=== PATIENT | male | born 1990 | race Caucasian/White ===

== ENCOUNTER 2019-02-24 16:26 | Inpatient (IN) ==
[2019-02-24] MEDS ORDERED: Isovue-370 500 ML BOTTLE IVP ONE (17:44)
[2019-02-24] MEDS ORDERED: *HR* LORazepam 2 MG/ML VIAL IM STA (17:52)
[2019-02-24] MEDS ORDERED: Ziprasidone 20 MG in Water for inj. (sterile) 1 ML IM ONE (19:09)
[2019-02-24 19:14] LABS: Basophils % 0.3 %; Eosinophils # 0.1 K/mcL (0.0-0.6); Eosinophils % 0.5 %; Hematocrit 47.6 % (37.5-50.1); Hemoglobin 17.1 g/dL (12.9-16.9); Immature Granulocytes % 0.4 % (0-4); Lymphocytes # 1.1 K/mcL (0.6-4.6); Lymphocytes % 9.6 %; Mean Corpuscular HGB Conc 35.9 g/dL (31.6-35.5); Mean Corpuscular Hemoglobin 30.6 pg (28.0-33.3); Mean Corpuscular Volume 85.3 fL (83.0-100.0); Mean Platelet Volume 9.4 fL (9.4-12.4); Monocytes % 8.6 %; Neutrophils # 9.2 K/mcL (1.6-8.9); Platelet Count 327 K/mcL (140-400); Red Blood Count 5.58 M/mcL (4.19-5.50); Red Cell Distribution Width 11.9 % (11.5-14.5); Segmented Neutrophils % 80.6 %; White Blood Count 11.4 K/mcL (4.3-11.1)
[2019-02-24 19:34] LABS: Acetaminophen < 10 mcg/mL (10-20); Alanine Aminotransferase 35 Units/L (7-52); Albumin 5.1 g/dL (3.5-5.7); Albumin/Globulin Ratio 1.5 (1.1-2.2); Alkaline Phosphatase 72 Units/L (34-104); Amylase 29 Units/L (29-103); Aspartate Amino Transferase 15 Units/L (13-39); BUN/Creatinine Ratio 16 (6-26); Bilirubin,Direct 0.2 mg/dL (0.0-0.2); Bilirubin,Indirect 0.7 mg/dL (0.0-1.2); Bilirubin,Total 0.9 mg/dL (0.3-1.0); Blood Urea Nitrogen 16 mg/dL (6-20); Calcium 10.3 mg/dL (8.6-10.3); Carbon Dioxide 22 mEq/L (23-29); Chloride 101 mEq/L (98-107); Ethanol < 10 mg/dL (Less than 10); Globulin 3.4 g/dL (2.4-3.5); Glucose 107 mg/dL (70-105); Lipase 9 Units/L (11-82); Osmolality,Calculated 290 (280-300); Potassium 3.5 mEq/L (3.5-5.1); Salicylate < 2.5 mg/dL (15.0-30.0); Sodium 139 mEq/L (136-145); Total Protein 8.5 g/dL (6.4-8.9); eGFR For African Americans > 60 (> 60); eGFR For Non-African Americans > 60 (> 60)
[2019-02-24 19:50] LABS: Bilirubin,Urine Negative (Negative); Blood,Urine Negative (Negative); Clarity,Urine Clear (Clear); Color,Urine Yellow (Yellow); Glucose,Urine (UA) Normal (Normal); Ketones,Urine 40 mg/dL (Negative); Leukocyte Esterase,Urine Negative (Negative); Nitrite,Urine Negative (Negative); Protein,Urine Trace mg/dL (Neg-Trace); Specific Gravity,Urine > 1.030 (1.010-1.025); Urobilinogen,Urine Normal (Normal)
[2019-02-24 19:59] LABS: Amphetamine Screen,Urine Negative ng/mL (Cutoff=1000); Barbiturate Screen,Urine Negative ng/mL (Cutoff=200); Benzodiazepines Screen,Urine Negative ng/mL (Cutoff=200); Cannabinoid Screen,Urine Negative ng/mL (Cutoff = 50); Cocaine Screen,Urine Negative ng/mL (Cutoff= 300); Opiate Screen,Urine Negative ng/mL (Cutoff=300); Phencyclidine Screen,Urine Negative ng/mL (Cutoff=25)
--- NOTE | 2019-02-24 20:47 | Emergency Department Note ---
Disposition Clinical Impression: Abdominal pain, Suicidal ideation Disposition: Still a Patient Referrals: NONE,PCP [Primary Care Provider] - Forms: ED Satisfaction Letter, Work/School Release Time of Disposition: 22:11 Abdominal Pain HPI - General Chief Complaint: ED Abdominal Pain Stated Complaint: abd pain/psych-anxious/agitated/not taking meds Time Seen by Provider: 02/24/19 17:17 Source: patient, family - History of Present Illness HPI Narrative: Patient is 28-year-old gentleman who presents to the emergency department with chief complaint of abdominal pain. He reports that he has been having abdominal pain for months and that no one will evaluate him correctly. The patient states that he has been seen in the ER but we will diskette up and leave per the patient's family the patient has history of psychiatric disorders and has not been taking his medications and is also been saying that he has been wanting to harm himself. The patient's father stated that last night he was talking about taking the car and driving the car and crashing the car to kill himself and has recently been holding a gun and saying that he was going to shoot himself. The patient currently denies any suicidal or homicidal ideation but is pacing around and is responding to internal stimuli. Pain Scale: 4 - Related Data Previous Rx's Medication Instructions Recorded Lansoprazole [Prevacid] 30 mg PO BIDAC #60 capsule. 02/22/19 Allergies Allergy/AdvReac Type Severity Reaction Status Date / Time ibuprofen Allergy Rash Verified 02/24/19 17:15 All systems ED: reviewed and negative except as stated. Abdominal Pain PMH - Past Medical History Medical history: Reports: no medical history Male Surgical History: Reports: other Psychiatric history: Reports: anxiety, schizophrenia - Social History Smoking status: Never smoker Alcohol use: Reports: none Drug use: Reports: none Physical Exam General: Conversant and pleasant interactive and nontoxic. Head: Normocephalic/atraumatic Eyes:PERRLA, EOMI, no conjunctivitis Nares: Without d/c. Ears: No erythema or d/c noted. Oralpharnyx: P&MMM noted, Neck: Supple, no JVD or HELPDESK TECHNICIAN noted. Cardovascular: regular rate and rhythm without murmur, brisk capillary refill, no peripheral edema. Lungs: Clear to ascultation bilaterally, non-labored Abd: Soft mild tenderness to palpation, Non Distended, no guarding, no rebound. : Defered Extremities: moves all extremities equally Neuro: AOx3, H is fidgeting around the room currently states that he is not suicidal or homicidal Psych: Normal Affect Derm: No rash noted - General Limitations: other General appearance: alert, anxious Course Course Narrative: The patient presented complaining of abdominal pain but then was attempting to walk out the patient was found to be expressing suicidal ideation at home the patient was very noncooperative at this point the determination was made that the patient does express significant risk to himself or potential risk to himself the patient will undergo medical clearance and evaluation by Ia. Patient been medically cleared from his medical standpoint and currently undergoing Ia evaluation. I will be signing out to Dr. Toro pending Ia evaluation and results Vital Signs Temperature 97.5 F L 02/24/19 18:19 Pulse Rate 98 02/24/19 18:19 Respiratory Rate 20 02/24/19 18:19 Blood Pressure 118/83 02/24/19 18:19 O2 Sat by Pulse Oximetry 97 02/24/19 18:19 Temperature 97.5 F L 02/24/19 18:22 Pulse Rate 98 02/24/19 18:22 Respiratory Rate 20 02/24/19 18:22 Blood Pressure 118/83 02/24/19 18:22 O2 Sat by Pulse Oximetry 97 02/24/19 18:22 Oxygen Delivery Oxygen Delivery Room Air Abdominal Pain - Lab Data Result diagrams: 02/24/19 17:43 02/24/19 17:44 Lab Results 02/24/19 02/24/19 02/24/19 Range/Units 17:43 17:44 19:41 WBC 11.4 H D (4.3-11.1) K/mcL RBC 5.58 H (4.19-5.50) M/mcL Hgb 17.1 H D (12.9-16.9) g/dL Hct 47.6 (37.5-50.1) % MCV 85.3 (83.0-100.0) fL MCH 30.6 (28.0-33.3) pg MCHC 35.9 H (31.6-35.5) g/dL RDW 11.9 (11.5-14.5) % Plt Count 327 (140-400) K/mcL MPV 9.4 (9.4-12.4) fL Immature Gran % 0.4 (0-4) % Seg Neutrophils % 80.6 % Lymphocytes % 9.6 % Monocytes % 8.6 % Eosinophils % 0.5 % Basophils % 0.3 % Neutrophils # 9.2 H (1.6-8.9) K/mcL Lymphocytes # 1.1 (0.6-4.6) K/mcL Monocytes # 1.0 (0.0-1.3) K/mcL Eosinophils # 0.1 (0.0-0.6) K/mcL Basophils # 0.0 (0.0-0.2) K/mcL Sodium 139 (136-145) mEq/L Potassium 3.5 (3.5-5.1) mEq/L Chloride 101 (98-107) mEq/L Carbon Dioxide 22 L (23-29) mEq/L BUN 16 (6-20) mg/dL Creatinine 0.99 (0.70-1.30) mg/dL Est GFR ( Amer) > 60 (> 60) Est GFR (Non-Af Amer) > 60 (> 60) BUN/Creatinine Ratio 16 (6-26) Glucose 107 H (70-105) mg/dL Calculated Osmolality 290 (280-300) Calcium 10.3 (8.6-10.3) mg/dL Total Bilirubin 0.9 (0.3-1.0) mg/dL Direct Bilirubin 0.2 (0.0-0.2) mg/dL Indirect Bilirubin 0.7 (0.0-1.2) mg/dL AST 15 (13-39) Units/L ALT 35 (7-52) Units/L Alkaline Phosphatase 72 (34-104) Units/L Serum Total Protein 8.5 (6.4-8.9) g/dL Albumin 5.1 (3.5-5.7) g/dL Globulin 3.4 (2.4-3.5) g/dL Albumin/Globulin Ratio 1.5 (1.1-2.2) Amylase 29 (29-103) Units/L Lipase 9 L (11-82) Units/L Urine Color Yellow (Yellow) Urine Clarity Clear (Clear) Urine pH 6.0 (5.0-8.0) pH Units Ur Specific [place] > 1.030 H (1.010-1.025) Urine Protein Trace (Neg-Trace) mg/dL Urine Glucose (UA) Normal (Normal) mg/dL Urine Ketones 40 H (Negative) mg/dL Urine Blood Negative (Negative) Urine Nitrite Negative (Negative) Urine Bilirubin Negative (Negative) Urine Urobilinogen Normal (Normal) mg/dL Ur Leukocyte Esterase Negative (Negative) Ur Culture Indicated? NO (NO) Salicylates < 2.5 L (15.0-30.0) mg/dL Urine Opiates Screen (Nzkzbc=570) ng/mL Ur Buprenorphine Scrn (Cutoff=5) ng/mL Acetaminophen < 10 L (10-20) mcg/mL Ur Barbiturates Screen (Ldpdyl=664) ng/mL Ur Phencyclidine Scrn (Cutoff=25) ng/mL Ur Amphetamines Screen (Ofotjl=7390) ng/mL U Benzodiazepines Scrn (Nitetg=103) ng/mL Urine Cocaine Screen (Cutoff= 300) ng/mL U Marijuana (THC) Screen (Cutoff = 50) ng/mL Ur Drug Screen Interp Ethyl Alcohol < 10 (Less than 10) mg/dL 02/24/19 Range/Units 19:41 WBC (4.3-11.1) K/mcL RBC (4.19-5.50) M/mcL Hgb (12.9-16.9) g/dL Hct (37.5-50.1) % MCV (83.0-100.0) fL MCH (28.0-33.3) pg MCHC (31.6-35.5) g/dL RDW (11.5-14.5) % Plt Count (140-400) K/mcL MPV (9.4-12.4) fL Immature Gran % (0-4) % Seg Neutrophils % % Lymphocytes % % Monocytes % % Eosinophils % % Basophils % % Neutrophils # (1.6-8.9) K/mcL Lymphocytes # (0.6-4.6) K/mcL Monocytes # (0.0-1.3) K/mcL Eosinophils # (0.0-0.6) K/mcL Basophils # (0.0-0.2) K/mcL Sodium (136-145) mEq/L Potassium (3.5-5.1) mEq/L Chloride (98-107) mEq/L Carbon Dioxide (23-29) mEq/L BUN (6-20) mg/dL Creatinine (0.70-1.30) mg/dL Est GFR ( Amer) (> 60) Est GFR (Non-Af Amer) (> 60) BUN/Creatinine Ratio (6-26) Glucose (70-105) mg/dL Calculated Osmolality (280-300) Calcium (8.6-10.3) mg/dL Total Bilirubin (0.3-1.0) mg/dL Direct Bilirubin (0.0-0.2) mg/dL Indirect Bilirubin (0.0-1.2) mg/dL AST (13-39) Units/L ALT (7-52) Units/L Alkaline Phosphatase (34-104) Units/L Serum Total Protein (6.4-8.9) g/dL Albumin (3.5-5.7) g/dL Globulin (2.4-3.5) g/dL Albumin/Globulin Ratio (1.1-2.2) Amylase (29-103) Units/L Lipase (11-82) Units/L Urine Color (Yellow) Urine Clarity (Clear) Urine pH (5.0-8.0) pH Units Ur Specific [place] (1.010-1.025) Urine Protein (Neg-Trace) mg/dL Urine Glucose (UA) (Normal) mg/dL Urine Ketones (Negative) mg/dL Urine Blood (Negative) Urine Nitrite (Negative) Urine Bilirubin (Negative) Urine Urobilinogen (Normal) mg/dL Ur Leukocyte Esterase (Negative) Ur Culture Indicated? (NO) Salicylates (15.0-30.0) mg/dL Urine Opiates Screen Negative (Owmlbm=571) ng/mL Ur Buprenorphine Scrn Negative (Cutoff=5) ng/mL Acetaminophen (10-20) mcg/mL Ur Barbiturates Screen Negative (Vazwnb=294) ng/mL Ur Phencyclidine Scrn Negative (Cutoff=25) ng/mL Ur Amphetamines Screen Negative (Zuubgy=2726) ng/mL U Benzodiazepines Scrn Negative (Spcqpb=749) ng/mL Urine Cocaine Screen Negative (Cutoff= 300) ng/mL U Marijuana (THC) Screen Negative (Cutoff = 50) ng/mL Ur Drug Screen Interp See Below Ethyl Alcohol (Less than 10) mg/dL
[2019-02-24] MEDS ORDERED: Haloperidol Lactate 5 MG/ML VIAL IM PRN (23:06)
[2019-02-24] MEDS ORDERED: MOM Conc 10 ML UD.LIQ PO PRN (23:06)
[2019-02-24] MEDS ORDERED: Mag Hydrox/Al Hydrox/Simeth 30 ML UDC PO PRN (23:06)
[2019-02-24] MEDS ORDERED: hydrOXYzine pamoate 25 MG CAPSULE PO PRN (23:06)
[2019-02-24] MEDS ORDERED: traZODone 50 MG TABLET PO PRN (23:06)
[2019-02-24] MEDS ORDERED: *HR* LORazepam 1 MG TABLET PO PRN (23:06)
[2019-02-24] MEDS ORDERED: Acetaminophen 325 MG TABLET PO PRN (23:06)
[2019-02-24] MEDS ORDERED: *HR* LORazepam 2 MG/ML VIAL IM PRN (23:06)
--- NOTE | 2019-02-25 08:13 | Psychiatry History & Physical ---
Date of Encounter: 02/25/19 Time of Encounter: 09:45 History of Present Illness Patient Stated Chief Complaint: No one believes I'm dying Medicare Admission Attestation: For traditional Medicare patients the provided hospital inpatient services are reasonable and necessary and in the case of services not specified as inpatient-only under 42 CFR 419.22 (n), that they are appropriately provided as inpatient services in accordance 42 CFR 412.3. For Critical Access Hospital the patient may reasonably be expected to be discharged or transferred to a hospital within 96 hours after admission to the Critical Access Hospital. Admitted From: Emergency Dept Plans for Post Hospital Care: Home History of Present Illness: Mr. Mauro is a 28 year old male who presented to the emergency department with chief complaint of abdominal pain. He reports that he has been having abdominal pain for months and that no one will evaluate him correctly. The patient states that he has been seen in the ER but we will diskette up and leave per the patient's family the patient has history of psychiatric disorders and has not been taking his medications and is also been saying that he has been wanting to harm himself. The patient's father stated that last night he was talking about taking the car and driving the car and crashing the car to kill himself and has recently been holding a gun and saying that he was going to shoot himself. In the emergency room he was pacing around and responding to internal stimuli. This morning the patient currently denies any suicidal or homicidal ideation but is very guarded and continues to appear to respond to internal stimuli. Does reports sad mood, decreased interest, feelings guilt and worthlessness, low energy, impaired concentration that he attributes this to medical problems. He denies a history of manic symptoms. He minimizes auditory and visual hallucinations. He does have some paranoia. He believes that it is a medical conspiracy that no one has helped him with his problems. Past Med Surg Social Fam HX - Past Medical History Medical history: no medical history - Past Psychiatric History Psychiatric history: Reports: prior suicide attempt, schizophrenia, previous psychiatric hospitalization Past psychiatric history details: Patient has multiple past hospitalizations including at [facility] and [facility] for psychiatry in the last couple years. He visits emergency departments numerous times often 3-4 times a night. He is very somatic. He reports he has been taking his olanzapine however his family since he has not. He reports prior suicide attempt by overdose. Family psychiatric history: Unknown Family History of Suicide: Unknown - Social History Smoking Status: Never smoker Smokeless Tobacco Status: Yes Alcohol use: none Drug use: none Occupational status: unemployed Current living situation: With Family Activity Level: Independent ambulation Recent Out of Country Travel Within the Last 8 Weeks: No Exposure or Possible Exposure to Illness During Travel: No Medications & Allergies Lansoprazole [Prevacid] 30 mg PO BIDAC #60 capsule. 02/22/19 [Rx] Allergy/AdvReac Type Severity Reaction Status Date / Time ibuprofen Allergy Rash Verified 02/24/19 17:15 Review of Systems Constitutional: Reports: chills, weakness, weight change, night sweats Eyes: Reports: vision change Ears, Nose, Throat: Reports: epistaxis, dysphagia Cardiovascular: Reports: chest pain, palpitations, dyspnea on exertion Respiratory: Reports: dyspnea, wheezes Gastrointestinal: Reports: abdominal pain, nausea, vomiting, diarrhea, constipation Genitourinary male: Denies: urgency Musculoskeletal: Reports: back pain, joint swelling, joint pain, myalgia Integumentary: Reports: rash, change in hair/nails Neurological: Reports: headache, weakness, numbness, paresthesias, confusion, memory loss, vertigo Psychiatric: Reports: depression, abnormal sleep pattern, suicidal ideation, change in appetite, auditory hallucinations, hopelessness, irritability, mood swings. Denies: homicidal ideation Endocrine: Reports: fatigue, heat or cold intolerance, polydipsia Hematologic/Lymphatic: Reports: easy bruising Allergic/Immunologic: Reports: facial swelling, urticaria, itchy eyes Exam - HEENT Head exam IM: Present: atraumatic Eye exam IM: Present: EOMI ENT exam IM: Present: mucous membranes moist - Neurological Neurological exam: Present: reflexes normal - Respiratory Respiratory exam IM: Absent: respiratory distress - GI/Abdominal GI/Abdominal exam IM: Present: no peritoneal signs - Extremities Extremities exam IM: Present: full ROM - Skin Skin exam IM: Absent: abrasion - Constitutional Vitals: Temp Pulse Resp BP Pulse Ox 97.5 F L 98 20 118/83 97 02/24/19 18:22 02/24/19 18:22 02/24/19 18:22 02/24/19 18:22 02/24/19 18:22 General appearance: age & developmentally appropriate, disheveled - Musculoskeletal Gait: slow Station: stooped Strength & Tone: mild weakness - Psychiatric Patient Orientation: Yes Person, Yes Time, Yes Place Level of alertness: Alert Behavior: uncooperative, guarded Psychomotor activity: Slowed Eye Contact: No Eye Contact Mood Description: Depressed Patient description of mood: Scared that I am going to Affect description: congruent with mood Speech Volume: Soft/Quiet Speech pattern: slowed Language & Vocabulary: consistent with education Thought Process: Tangential Thought Content: Yes Suicidal ideation, No Homicidal ideation, Yes Paranoid delusion, Yes Somatic delusion Perceptual Disturbances: Yes Auditory hallucinations, Yes Visual hallucinations Attention Span Ability: Unable to Focus, Unable to Sustain Attention Memory Description: Grossly Intact Patient Reliability: Questionable Historian Fund of knowledge: Yes average Intelligence Estimate: Average Judgment: Poor Insight: None Results - Drug Levels and Toxicology Drug Levels and Toxicology: Drug Levels and Toxicity 02/24/19 02/24/19 17:44 19:41 Urine Opiates Screen Negative Acetaminophen < 10 L Ur Barbiturates Screen Negative Ur Phencyclidine Scrn Negative Ur Amphetamines Screen Negative U Benzodiazepines Scrn Negative Urine Cocaine Screen Negative U Marijuana (THC) Screen Negative Ethyl Alcohol < 10 - Labs Labs: Laboratory Last Values WBC 11.4 K/mcL (4.3-11.1) H D 02/24/19 17:43 RBC 5.58 M/mcL (4.19-5.50) H 02/24/19 17:43 Hgb 17.1 g/dL (12.9-16.9) H D 02/24/19 17:43 Hct 47.6 % (37.5-50.1) 02/24/19 17:43 MCV 85.3 fL (83.0-100.0) 02/24/19 17:43 MCH 30.6 pg (28.0-33.3) 02/24/19 17:43 MCHC 35.9 g/dL (31.6-35.5) H 02/24/19 17:43 RDW 11.9 % (11.5-14.5) 02/24/19 17:43 Plt Count 327 K/mcL (140-400) 02/24/19 17:43 MPV 9.4 fL (9.4-12.4) 02/24/19 17:43 Immature Gran % 0.4 % (0-4) 02/24/19 17:43 Seg Neutrophils % 80.6 % 02/24/19 17:43 9.6 % 02/24/19 17:43 8.6 % 02/24/19 17:43 0.5 % 02/24/19 17:43 0.3 % 02/24/19 17:43 9.2 K/mcL (1.6-8.9) H 02/24/19 17:43 1.1 K/mcL (0.6-4.6) 02/24/19 17:43 1.0 K/mcL (0.0-1.3) 02/24/19 17:43 0.1 K/mcL (0.0-0.6) 02/24/19 17:43 0.0 K/mcL (0.0-0.2) 02/24/19 17:43 Sodium 139 mEq/L (136-145) 02/24/19 17:44 Potassium 3.5 mEq/L (3.5-5.1) 02/24/19 17:44 Chloride 101 mEq/L (98-107) 02/24/19 17:44 Carbon Dioxide 22 mEq/L (23-29) L 02/24/19 17:44 BUN 16 mg/dL (6-20) 02/24/19 17:44 0.99 mg/dL (0.70-1.30) 02/24/19 17:44 Est GFR ( Amer) > 60 (> 60) 02/24/19 17:44 Est GFR (Non-Af Amer) > 60 (> 60) 02/24/19 17:44 16 (6-26) 02/24/19 17:44 Glucose 107 mg/dL (70-105) H 02/24/19 17:44 290 (280-300) 02/24/19 17:44 Calcium 10.3 mg/dL (8.6-10.3) 02/24/19 17:44 0.9 mg/dL (0.3-1.0) 02/24/19 17:44 0.2 mg/dL (0.0-0.2) 02/24/19 17:44 0.7 mg/dL (0.0-1.2) 02/24/19 17:44 AST 15 Units/L (13-39) 02/24/19 17:44 ALT 35 Units/L (7-52) 02/24/19 17:44 72 Units/L (34-104) 02/24/19 17:44 8.5 g/dL (6.4-8.9) 02/24/19 17:44 5.1 g/dL (3.5-5.7) 02/24/19 17:44 3.4 g/dL (2.4-3.5) 02/24/19 17:44 1.5 (1.1-2.2) 02/24/19 17:44 Amylase 29 Units/L (29-103) 02/24/19 17:44 9 Units/L (11-82) L 02/24/19 17:44 Yellow (Yellow) 02/24/19 19:41 Clear (Clear) 02/24/19 19:41 6.0 pH Units (5.0-8.0) 02/24/19 19:41 Ur Specific [place] > 1.030 (1.010-1.025) H 02/24/19 19:41 Trace mg/dL (Neg-Trace) 02/24/19 19:41 Normal mg/dL (Normal) 02/24/19 19:41 40 mg/dL (Negative) H 02/24/19 19:41 Negative (Negative) 02/24/19 19:41 Negative (Negative) 02/24/19 19:41 Negative (Negative) 02/24/19 19:41 Normal mg/dL (Normal) 02/24/19 19:41 Ur Leukocyte Esterase Negative (Negative) 02/24/19 19:41 Ur Culture Indicated? NO (NO) 02/24/19 19:41 Salicylates < 2.5 mg/dL (15.0-30.0) L 02/24/19 17:44 Negative ng/mL (Cfibmd=082) 02/24/19 19:41 Ur Buprenorphine Scrn Negative ng/mL (Cutoff=5) 02/24/19 19:41 Acetaminophen < 10 mcg/mL (10-20) L 02/24/19 17:44 Ur Barbiturates Screen Negative ng/mL (Lxepec=902) 02/24/19 19:41 Ur Phencyclidine Scrn Negative ng/mL (Cutoff=25) 02/24/19 19:41 Ur Amphetamines Screen Negative ng/mL (Vheszg=8372) 02/24/19 19:41 U Benzodiazepines Scrn Negative ng/mL (Wmtjbg=418) 02/24/19 19:41 Negative ng/mL (Cutoff= 300) 02/24/19 19:41 U Marijuana (THC) Screen Negative ng/mL (Cutoff = 50) 02/24/19 19:41 Ur Drug Screen Interp See Below 02/24/19 19:41 Ethyl Alcohol < 10 mg/dL (Less than 10) 02/24/19 17:44 - Impressions Impressions Abdomen/Pelvis CT 02/24/19 17:44 IMPRESSION: No acute abnormality within the abdomen and pelvis. D/ / Logan Saucedo MD / Logan Saucedo MD Interpreting Provider: Logan Saucedo MD Assessment and Plan (1) Schizophrenia Current visit: Yes Status: Acute Plan: Admit inpatient for safety and stabilization, Close observation, Suicide Precautions per unit protocol, Encourage participation in unit milieu, Group Therapy, Monitor sleep, Monitor appetite Additional Plan: Therapist to try to get records from prior hospitalizations and outpatient services. Encourage group attendance. We will restart olanzapine 15 mg by mouth daily at bedtime as it is not consistent how compliant he has been in the past. This may need to be adjusted up. I will continue to encourage a long-act ing injectable which he is currently refusing. Aims is 0. We will check hemoglobin A1c and lipids. Risks, benefits, side effects, alternatives discussed w/pt: Yes Patient agreeable to treatment: Yes Plans for Post Hospital Care: Home Estimated Length of Stay (Days): 5 Qualifiers: Schizophrenia type: unspecified Qualified Code(s): F20.9 - Schizophrenia, unspecified
[2019-02-25] MEDS ORDERED: OLANZapine 5 MG TAB.RAPDIS PO SCH ×2 (18:00→21:00)
[2019-02-25] MEDS ORDERED: OLANZapine 10 MG TAB.RAPDIS PO SCH (21:00)
[2019-02-25] MEDS: OLANZapine 5 MG TAB.RAPDIS PO SCH (21:23)
[2019-02-26 10:17] LABS: Chol/HDL Ratio 3.1 (0-4.9)
[2019-02-26 10:22] LABS: Estimated Average Glucose 108 mg/dl
[2019-02-26 10:31] LABS: Thyroid Stimulating Hormone 2.836 mcIU/mL (0.340-5.600)
--- NOTE | 2019-02-26 12:50 | Psychiatry Progress Note ---
Date of Encounter: 02/26/19 Time of Encounter: 12:43 Subjective Interval history: Client remains somatically preoccupied but has trouble verbalizing what he is feeling. Very focused on his stomach. However, he also talks about feeling dizzy, nauseous, and hot/cold. Going from staff person to staff person with a litany of complaints but nothing consistent. Denying SI/HI/AH/VH. Wanting to go home but also wanting someone to take care of him physically. Not open to the idea that what he is feeling physically might be the result of anxiety/mental illness. Client reports multiple prior hospitalizations. Has been examined by many professionals-both for mental and physical health. Prim salvatore diagnosis seems to be Schizophrenia. No organic cause of symptoms has been identified. Somatic delusions are very difficult to treat. Client is also apparently noncompliant with medications at home which likely only intensifies the delusions and makes them more refractory to treatment. Today client was asking about [facility] housing. Does not really meet criteria for this type of placement but client was given information on his options. He is already linked with [facility] and if he chooses to go somewhere like [facility] it can be arranged on an outpatient basis. For now, client is welcome home with his parents and it would be in his best interest to be somewhere where he has support. Possible discharge tomorrow. Review of Systems Constitutional: Reports: chills, weakness Eyes: Denies: eye pain, vision change Ears, Nose, Throat: Denies: ear pain, throat pain, dental pain, hearing loss, congestion Cardiovascular: Reports: palpitations Respiratory: Reports: other Gastrointestinal: Reports: abdominal pain, nausea Musculoskeletal: Reports: other Neurological: Reports: weakness, other Psychiatric: Reports: depression, abnormal sleep pattern, suicidal ideation, change in appetite, auditory hallucinations, hopelessness, irritability, mood swings. Denies: homicidal ideation Results - Vital Signs Vital Signs: Temp Pulse Resp BP Pulse Ox 98.2 F 92 20 122/72 96 02/25/19 20:09 02/25/19 20:09 02/25/19 20:09 02/25/19 20:09 02/25/19 20:09 - Labs Labs: Laboratory Results - last 24 hr 02/26/19 02/26/19 09:40 09:40 Est Mean Plasma Glucose 108 Hemoglobin A1c 5.4 Triglycerides 50 Cholesterol 125 LDL Cholesterol, Calc 75 VLDL Cholesterol, Calc 10 HDL Cholesterol 40 Cholesterol/HDL Ratio 3.1 TSH 2.836 - Impressions ITS Impressions Abdomen/Pelvis CT 02/24/19 17:44 IMPRESSION: No acute abnormality within the abdomen and pelvis. D/ / Logan Saucedo MD / Logan Saucedo MD Interpreting Provider: Logan Saucedo MD Assessment and Plan (1) Schizophrenia Current visit: Yes Status: Acute Plan: Continue hospitalization, Close observation, Suicide Precautions per unit protocol, Encourage participation in unit milieu, Group Therapy, Monitor sleep, Monitor appetite Risks, benefits, side effects, alternatives discussed w/pt: Yes Patient agreeable to treatment: Yes Qualifiers: Schizophrenia type: unspecified Qualified Code(s): F20.9 - Schizophrenia, unspecified Consult Discharge Plan - Plan Referrals: [facility] [Outside] - 03/13/19 3:00 pm (You have an appointment scheduled for Wednesday, March 13, 2019 at 3:[address] Lan Flores for medication management. left with Kathleen Gordon to schedule counseling/case management. Please contact the office at least 24 hours in advance if you are unable to keep your appointment(s). ) Psychiatry Exam - Constitutional Vitals: Temp Pulse Resp BP Pulse Ox 98.2 F 92 20 122/72 96 02/25/19 20:09 02/25/19 20:09 02/25/19 20:09 02/25/19 20:09 02/25/19 20:09 General appearance: age & developmentally appropriate, well-groomed, well-nourished - Musculoskeletal Gait: normal Station: relaxed Strength & Tone: normal for patient - Psychiatric Patient Orientation: Yes Person, Yes Time, Yes Place Level of alertness: Alert Behavior: anxious Psychomotor activity: Normal Eye Contact: Maintains Eye Contact Mood Description: Anxious Affect description: congruent with mood Speech Volume: Normal Speech pattern: normal rate, normal rhythm, normal tone, fluent, spontaneous Language & Vocabulary: consistent with education Thought Process: Perseveration Thought Content: No Suicidal ideation, No Homicidal ideation, Yes Preoccupation, Yes Somatic delusion Perceptual Disturbances: No Auditory hallucinations, No Visual hallucinations Attention Span Ability: Capable of Focused Attention Memory Description: Grossly Intact Patient Reliability: Questionable Historian Fund of knowledge: Yes abstraction ability Intelligence Estimate: Average Judgment: Fair Insight: Partial
--- NOTE | 2019-02-26 15:57 | Electrocardiograph Report ---
[address] [address] Test Date: 2019-02-24 Pat Name: Sergo Mauro Department: EXAM16 Room: 1A41 Gender: Quantitative Analyst Marketing: : 1990 Requested By: Kolby Summers Order Number: [id number] Reading MD: Pedro Hood Measurements Intervals [place] Rate: 108 P: 75 GA: 131 QRS: 58 QRSD: 100 T: 8 QT: 334 QTc: 448 Interpretive Statements Sinus tachycardia Left atrial enlargement Minimal ST depression, diffuse leads Electronically Signed On 02-26-2019 15:56:16 EDT by Pedro Hood
[2019-02-26] MEDS: OLANZapine 5 MG TAB.RAPDIS PO SCH (21:12)
--- NOTE | 2019-02-27 16:05 | Psychiatry Progress Note ---
Date of Encounter: 02/27/19 Time of Encounter: 16:03 Subjective Interval history: Plan was to possibly discharge client today. However, he is refusing to come out of his room or talk to staff. Playing opossum. Staff see him moving and raising is head when they exit but he will immediately put his head back down and be still when staff are in his room. Client was motivated for discharge yesterday. Not sure what happened. He possibly had a bad interaction with his parents and is not wanting to return home. However, he is refusing to engage with anyone at the moment so his motivations are unclear. Review of Systems Constitutional: Denies: fever, chills, weakness, weight change Eyes: Denies: eye pain, vision change Ears, Nose, Throat: Denies: ear pain, throat pain, dental pain, hearing loss, congestion Cardiovascular: Denies: chest pain, palpitations, dyspnea on exertion Respiratory: Denies: cough, dyspnea, wheezes Gastrointestinal: Denies: abdominal pain, nausea, vomiting, diarrhea, constipation Musculoskeletal: Denies: joint swelling, joint pain Neurological: Denies: headache, weakness, numbness, memory loss Psychiatric: Reports: depression, abnormal sleep pattern, suicidal ideation, change in appetite, auditory hallucinations, hopelessness, irritability, mood swings. Denies: homicidal ideation Results - Vital Signs Vital Signs: Temp Pulse Resp BP Pulse Ox 97.9 F 85 16 137/82 98 02/26/19 09:00 02/26/19 09:00 02/26/19 09:00 02/26/19 09:00 02/26/19 09:00 - Labs Labs: Laboratory Results - last 24 hr 02/26/19 09:40 T.pallidum Ab Interpret Negative - Impressions ITS Impressions Abdomen/Pelvis CT 02/24/19 17:44 IMPRESSION: No acute abnormality within the abdomen and pelvis. D/ / Logan Saucedo MD / Logan Saucedo MD Interpreting Provider: Logan Saucedo MD Assessment and Plan (1) Schizophrenia Current visit: Yes Status: Acute Plan: Continue hospitalization, Close observation, Suicide Precautions per unit protocol, Encourage participation in unit milieu, Group Therapy, Monitor sleep, Monitor appetite Risks, benefits, side effects, alternatives discussed w/pt: Yes Patient agreeable to treatment: Yes Qualifiers: Schizophrenia type: unspecified Qualified Code(s): F20.9 - Schizophrenia, unspecified Consult Discharge Plan - Plan Referrals: Vaughn Alonzo [facility] [place] - 03/13/19 3:00 pm (You have an appointment scheduled for Wednesday, March 13, 2019 at 3:[address] Lan Flores for medication management. left with Ktahleen Gordon to schedule counseling/case management. Please contact the office at least 24 hours in advance if you are unable to keep your appointment(s). ) Psychiatry Exam - Constitutional Vitals: Temp Pulse Resp BP Pulse Ox 97.9 F 85 16 137/82 98 02/26/19 09:00 02/26/19 09:00 02/26/19 09:00 02/26/19 09:00 02/26/19 09:00 General appearance: age & developmentally appropriate, well-groomed, well- nourished - Musculoskeletal Station: relaxed Strength & Tone: normal for patient - Psychiatric Patient Orientation: Yes Person, Yes Time, Yes Place Level of alertness: Alert Behavior: uncooperative Psychomotor activity: Normal Eye Contact: No Eye Contact Mood Description: Irritable Affect description: congruent with mood Speech Volume: No speech Speech pattern: non-verbal Attention Span Ability: Capable of Focused Attention Memory Description: Grossly Intact Patient Reliability: Questionable Historian Fund of knowledge: Yes abstraction ability Intelligence Estimate: Average Judgment: Poor Insight: Minimal
[2019-02-27] MEDS: OLANZapine 5 MG TAB.RAPDIS PO SCH (21:26)
[2019-02-28 08:40] VITALS: BP 142/97
--- NOTE | 2019-02-28 08:43 | Discharge Summary ---
Date of Encounter: 02/28/19 Time of Encounter: 08:41 Diagnosis - Discharge Diagnosis (1) Schizophrenia Status: Acute Qualifiers: Schizophrenia type: unspecified Qualified Code(s): F20.9 - Schizophrenia, unspecified Medications - Discharge Medications Prescriptions: OLANZapine [Zyprexa Zydis] 15 mg PO HS #90 tab.rapdis Lansoprazole [Prevacid] 30 mg PO BIDAC #60 capsule.dr 02/22/19 [Rx] Lisinopril [Zestril] 10 mg PO DAILY 02/25/19 [History] Trazodone HCl 50 mg PO HS PRN 02/25/19 [History] OLANZapine [Zyprexa Zydis] 15 mg PO HS #90 tab.rapdis 02/28/19 [Rx] Allergy/AdvReac Type Severity Reaction Status Date / Time ibuprofen Allergy Rash Verified 02/24/19 17:15 Results Procedures and tests throughout hospitalization: Completed Lab Orders Category Date Time Status Acetaminophen Stat Lab 02/24/19 17:44 Completed Amylase Stat Lab 02/24/19 17:44 Completed Basic Metabolic Panel Stat Lab 02/24/19 17:44 Completed Complete Blood Count [HEME] Stat Lab 02/24/19 17:43 Completed Drug Screen, Urine [UCHEM] Stat Lab 02/24/19 19:41 Completed Ethanol Stat Lab 02/24/19 17:44 Completed Hepatic Panel Stat Lab 02/24/19 17:44 Completed Hgb A1C Routine Lab 02/25/19 09:48 Completed Lipase Stat Lab 02/24/19 17:44 Completed Lipid Panel Routine Lab 02/25/19 09:48 Completed Salicylate Stat Lab 02/24/19 17:44 Completed Thyroid Stimulating Hormone Routine Lab 02/25/19 09:48 Completed Treponema Pallidum Ab Routine Lab 02/25/19 09:48 Completed Urinalysis Reflex Cult & Micro [URIN] Stat Lab 02/24/19 19:41 Completed Completed Imaging Orders Category Date Time Status CT abd pelvis w iv no oral [CT] Stat Cat Scan 02/24/19 17:44 Completed Provider Date of admission: 02/24/19 22:59 Primary care physician: PCP NONE Discharging clinician: Lina Jane Psychiatry Exam - Constitutional Vitals: Temp Pulse Resp BP Pulse Ox 97.4 F L 72 16 142/97 98 02/28/19 08:40 02/28/19 08:40 02/28/19 08:40 02/28/19 08:40 02/28/19 08:40 General appearance: age & developmentally appropriate, well-groomed, well- nourished - Musculoskeletal Gait: normal Station: relaxed Strength & Tone: normal for patient - Psychiatric Patient Orientation: Yes Person, Yes Time, Yes Place Level of alertness: Alert Behavior: calm, cooperative Psychomotor activity: Normal Eye Contact: Maintains Eye Contact Mood Description: Euthymic/stable Affect description: congruent with mood Speech Volume: Normal Speech pattern: normal rate, normal rhythm, normal tone, fluent, spontaneous Language & Vocabulary: consistent with education Thought Process: Linear, Goal Oriented Thought Content: No Suicidal ideation, No Homicidal ideation, Yes Somatic delusion Perceptual Disturbances: No Reacting to internal stimuli, No Auditory hallucinations, No Visual hallucinations Attention Span Ability: Capable of Focused Attention Memory Description: Grossly Intact Patient Reliability: Reliable Historian Fund of knowledge: Yes abstraction ability, Yes aware of current events Intelligence Estimate: Average Judgment: Limited Insight: Minimal Hospital Course Hospital course: Mr. Mauro is a 28 year old male who was admitted secondary to somatic delusions and vague SI. Client had been presenting to the ER multiple times with a variety of somatic complaints. He has been worked up for various health condit ions over the years with no findings of physical illness. Client has Schizophrenia and is reportedly noncompliant with meds in the community. Prior to admission client threatened to hurt himself at home if he did not receive medical attention. Records indicate client actually put a gun in his mouth in front of his parents. Client states he has done this in the past but that he did not actually do that this admission. Prior to discharge staff will verify with his parents that there is no gun in the home or request that the gun be removed/secured. Client has denied SI, intent, or plan to this medical underwriter since this medical underwriter came on service. He has been overly somatic and at times he has gone from staff person to staff person complaining of a litany of ailments. However, this morning he reports feeling well and ready to go home. He is denying SI/HI/AH/VH. He states he had a good conversation with his parents last night and he feels positive about returning to their house. Staff have spoken with client's parents and they have no concerns having their son return home. Client was ready to be discharged yesterday. However, he refused to get up and speak with this medical underwriter or engage with staff. He apparently got out of bed five minutes after this medical underwriter left for the day and asked to speak with me. When asked about this today client states he was "just really tired." According to staff client stayed in bed until 5pm during the days prior to this medical underwriter coming onto service as well. 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 According to client he does this at home as well. Client has been compliant with Zyprexa while inpatient. Some of his somatic delusions are likely fixed but they seem less intense today. Client is future and goal oriented today. Looks stable for discharge. Total time spent with client greater than 30 minutes. Patient was educated of his diagnosis and the risks, benefits, and side effects of this treatment and alternative treatment options and was monitored for responsiveness and side effects. Mood, anxiety, sleep, appetite, and interest improved, as did future orientation. Self-harm thoughts subsided, thinking cleared, psychosis resolved, and mood stabilized. Patient was able to attend both individual and group therapy sessions as well as meeting with the psychiatrist daily and urged to discuss any medication or treatment issues or other concerns. The patient was educated primarily by verbal means about their diagnosis and manifestations in their life. The option for treatment including group and individual therapy programming was offered to the patient in the use of medications with all their potential risks, benefits, and side effects were discussed with the patient at length. The patient was given the opportunity to ask questions and was noted to participate in the treatment in the planning process. The patient felt ready and eager to be discharged from the inpatient psychiatric unit to continue on with treatment as an outpatient. The patient agreed that he is safe for this disposition. The patient was considered to be able to participate in informed consent and decision making with respect to medical, legal, and financial issues of the time of discharge. At the time of discharge the patient adamantly denied any concerns for lethality including suicidal or homicidal thoughts ideations or plans and was future oriented toward ongoing mental health care, medical follow-up and sobriety. - Time Spent with Patient Total time spent providing and/or coordinating discharge services: Greater than 30 minutes Assessment and Plan - Patient/Caregiver Discharge Instructions Activity: resume usual activities as tolerated Diet: regular diet - Follow up Plan Follow up with: Vaughn Alonzo [facility] [place] - 03/06/19 1:30 pm (You have an appointment scheduled with Kathleen Gordon on Wednesday, March 06, 2019 at 1:30 PM for Counseling and Case Management. You have an appointment scheduled for Wednesday, March 13, 2019 at 3:[address] Lan Flores for medication management. Please contact the office at least 24 hours in advance if you are unable to keep your appointment(s). ) Functional capacity at discharge: independent ambulation Overall status at discharge: Stable Disposition: Home, Self-Care Quality - Multiple Antipsychotics Patient discharged on 2 or more antipsychotic medications: No Procedures - Procedures Procedures: Medication Management, Crisis Stabilization, Supportive Therapy, Group Therapy
== END 2019-02-28 16:20 | disposition home or self-care (01) | DRG 751 ==
LOC: EMEROOARM 16:26 → 1ANU 22:59
PROVIDERS: ADMIT Psychiatry & Neurology Psychiatry; ATTEND Psychiatry & Neurology Psychiatry

== ENCOUNTER 2022-02-19 00:30 | Inpatient (IN) ==
[2022-02-19 01:52] LABS: Bilirubin,Urine Negative (Negative); Blood,Urine Negative (Negative); Clarity,Urine Clear (Clear); Color,Urine Light-Yellow (Yellow); Glucose,Urine (UA) Normal (Normal); Ketones,Urine Trace mg/dL (Negative); Leukocyte Esterase,Urine Negative (Negative); Nitrite,Urine Negative (Negative); Protein,Urine Trace mg/dL (Neg-Trace); Specific Gravity,Urine 1.012 (1.010-1.025); Urobilinogen,Urine Normal (Normal)
[2022-02-19 02:03] LABS: Amphetamine Screen,Urine Negative ng/mL (Cutoff=1000); Barbiturate Screen,Urine Negative ng/mL (Cutoff=200); Benzodiazepines Screen,Urine Negative ng/mL (Cutoff=200); Cannabinoid Screen,Urine Negative ng/mL (Cutoff = 50); Cocaine Screen,Urine Negative ng/mL (Cutoff= 300); Opiate Screen,Urine Negative ng/mL (Cutoff=300); Phencyclidine Screen,Urine Negative ng/mL (Cutoff=25)
[2022-02-19 19:44] LABS: Influenza A PCR Negative (Negative); Influenza B PCR Negative (Negative); Resp. Syncytial Virus PCR Negative (Negative)
[2022-02-19 19:45] LABS: SARS-CoV-2 by PCR (In House) Negative (Negative)
[2022-02-19] MEDS ORDERED: *HR* LORazepam 2 MG/ML VIAL IM PRN (20:13)
[2022-02-19] MEDS ORDERED: haloperidoL 5 MG TABLET PO PRN (20:13)
[2022-02-19] MEDS ORDERED: hydrOXYzine pamoate 25 MG CAPSULE PO PRN (20:13)
[2022-02-19] MEDS ORDERED: Acetaminophen 325 MG TABLET PO PRN (20:13)
[2022-02-19] MEDS ORDERED: MOM Conc 10 ML UD.LIQ PO PRN (20:13)
[2022-02-19] MEDS ORDERED: Haloperidol Lactate 5 MG/ML VIAL IM PRN (20:13)
[2022-02-19] MEDS ORDERED: *HR* LORazepam 1 MG TABLET PO PRN (20:13)
[2022-02-19] MEDS ORDERED: QUEtiapine Fumarate 25 MG TABLET PO PRN (20:13)
[2022-02-19] MEDS ORDERED: Ketoconazole Shampoo 120 ML BOTTLE TP ONE (20:45)
[2022-02-19 22:39] VITALS: BP 138/86; PULSE 100; TEMP 97.5; O2SAT 99
[2022-02-19] MEDS: Clotrimazole 1% CRM 15 GM TUBE TP SCH (22:54)
[2022-02-20] MEDS: Clotrimazole 1% CRM 15 GM TUBE TP SCH (10:23)
[2022-02-20] MEDS: Vitamin B Complex/Vit C/Vit E 1 EACH TABLET PO SCH (10:23)
[2022-02-20] MEDS ORDERED: OLANZapine 10 MG VIAL IM PRN (11:43)
[2022-02-20] MEDS ORDERED: Neosporin OINT 15 GM TUBE TP PRN (18:44)
[2022-02-21] MEDS: Clotrimazole 1% CRM 15 GM TUBE TP SCH ×3 (01:31→20:56)
[2022-02-21] MEDS: OLANZapine 10 MG TAB.RAPDIS PO SCH ×3 (01:31→20:56)
[2022-02-21] MEDS: Fluconazole 100 MG TABLET PO SCH (10:24)
[2022-02-21] MEDS: Vitamin B Complex/Vit C/Vit E 1 EACH TABLET PO SCH (10:24)
[2022-02-22] MEDS: OLANZapine 10 MG TAB.RAPDIS PO SCH ×2 (10:18→21:10)
[2022-02-22] MEDS: Vitamin B Complex/Vit C/Vit E 1 EACH TABLET PO SCH (10:18)
[2022-02-22] MEDS: Fluconazole 100 MG TABLET PO SCH (10:18)
[2022-02-22] MEDS: Clotrimazole 1% CRM 15 GM TUBE TP SCH ×2 (10:18→21:10)
[2022-02-23] MEDS: Vitamin B Complex/Vit C/Vit E 1 EACH TABLET PO SCH (08:48)
[2022-02-23] MEDS: OLANZapine 10 MG TAB.RAPDIS PO SCH (08:48)
[2022-02-23] MEDS: Clotrimazole 1% CRM 15 GM TUBE TP SCH ×2 (08:48→20:51)
[2022-02-23] MEDS: Fluconazole 100 MG TABLET PO SCH (08:48)
[2022-02-23] MEDS: Lurasidone 20 MG TABLET PO SCH (16:45)
[2022-02-24] MEDS: Fluconazole 100 MG TABLET PO SCH (10:42)
[2022-02-24] MEDS: Vitamin B Complex/Vit C/Vit E 1 EACH TABLET PO SCH (10:43)
[2022-02-24] MEDS: Clotrimazole 1% CRM 15 GM TUBE TP SCH ×2 (10:44→20:50)
[2022-02-24] MEDS: Lurasidone 20 MG TABLET PO SCH (17:34)
[2022-02-25] MEDS: Vitamin B Complex/Vit C/Vit E 1 EACH TABLET PO SCH (10:36)
[2022-02-25] MEDS: Fluconazole 100 MG TABLET PO SCH (10:36)
[2022-02-25] MEDS: Clotrimazole 1% CRM 15 GM TUBE TP SCH (10:36)
== END 2022-02-25 16:37 | disposition home or self-care (01) | DRG 750 ==
LOC: EMEROOARM 00:30 → 1ANU 20:02
PROVIDERS: ADMIT Psychiatry & Neurology Forensic Psychiatry; ATTEND Psychiatry & Neurology Forensic Psychiatry